=== PATIENT | female | born 1990 | race Caucasian/White ===

== ENCOUNTER 2017-08-20 14:27 | Emergency (ER) | payer OTHER, MEDICAID ==
[2017-08-20 14:46] VITALS: BP 154/81
[2017-08-20] MEDS ORDERED: ACETAMINOPHEN 325 MG TABLET PO ONE (15:35)
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
== END 2017-08-20 16:18 | disposition home or self-care (01) ==
LOC: ER 14:27
DX: O9A.211 Injury, poisoning and certain other consequences of external causes complicating pregnancy, first trimester (principal); S20.221A Contusion of right back wall of thorax, initial encounter; S10.81XA Abrasion of other specified part of neck, initial encounter; S40.211A Abrasion of right shoulder, initial encounter; V43.52XA Car driver injured in collision with other type car in traffic accident, initial encounter; Z3A.11 11 weeks gestation of pregnancy
CPT/HCPCS: 99284